=== PATIENT | female | born 1945 | race African-American/Black ===

== ENCOUNTER 2024-10-20 03:09 | Inpatient (IN) | payer BC, MEDICAID ==
[~2024-10-20] VITALS: Ht 157.5 cm; Wt 57.7 kg
[~2024-10-20 03:09] MED LIST: ALBU8HFA PO; AMI200T PO; APIX5TAB3 PO; ASPI-1475 PO; DOCU-392 PO; EMPA10TA PO; FURO20TA4 PO; METO50TA16 PO; OMEP20CA16 PO; ROSU40TA89 PO; SPIR25TA5 PO; TIOT4MIS2 INH; [UNRECOGNIZED DRUG - CODE] PO
[2024-10-20 03:54] LABS: BASOPHILS % (AUTO) 0.9 % (0-1); EOSINOPHILS % (AUTO) 0.8 % (0-6); HEMATOCRIT 30.4 % (35.0-45.0); HEMOGLOBIN 9.6 g/dl (12.0-16.0); LYMPHOCYTES # (AUTO) 1.2 X10'3 (1.1-4.8); LYMPHOCYTES % (AUTO) 27.2 % (21-51); MEAN CORPUSCULAR HEMOGLOBIN 27.4 PG (27.0-31.0); MEAN CORPUSCULAR HGB CONC 31.6 g/dL (33.0-36.5); MEAN CORPUSCULAR VOLUME 86.8 FL (78-98); MEAN PLATELET VOLUME 7.6 FL (7.4-10.4); MONOCYTES # (AUTO) 0.7 X10'3 (0-0.9); NEUTROPHILS # (AUTO) 2.3 X10'3 (1.8-7.7); NEUTROPHILS % (AUTO) 54.1 % (42-75); PLATELET COUNT 238 X10'3 (140-440); RED BLOOD COUNT 3.51 X10'6 (4.20-5.60); RED CELL DISTRIBUTION WIDTH 19.7 % (11.5-14.5); WHITE BLOOD COUNT 4.3 X10'3 (4.5-11.0)
[2024-10-20 04:10] LABS: ALANINE AMINOTRANSFERASE 91 U/L (12-78); ALBUMIN 2.3 G/DL (3.4-5.0); ALBUMIN/GLOBULIN RATIO 0.4 (1.1-1.5); ALKALINE PHOSPHATASE 269 IU/L (46-116); ANION GAP 8 (8-16); ASPARTATE AMINO TRANSFERASE 99 U/L (10-37); BILIRUBIN,TOTAL 0.6 MG/DL (0.1-1.0); BLOOD UREA NITROGEN 30 MG/DL (7-18); BUN/CREATININE RATIO 13.6 (10.0-20.0); CALCIUM 8.6 MG/DL (8.5-10.1); CHLORIDE 104 MMOL/L (99-107); GLUCOSE 110 MG/DL (70-104); LIPASE 39 U/L (16-77); POTASSIUM 5.5 MMOL/L (3.5-5.1); SODIUM 133 MMOL/L (135-145); TOTAL CARBON DIOXIDE 21.4 MMOL/L (24-32); TOTAL PROTEIN 8.7 G/DL (6.4-8.2); eGFR 22 ML/MIN
[2024-10-20 04:38] LABS: EOSINOPHILS % (MANUAL) 2 % (0-6); HYPOCHROMASIA 1+; LYMPHOCYTES % (MANUAL) 23 % (21-51); MICROCYTOSIS 1+; MONOCYTES % (MANUAL) 8 % (2-12); NEUTROPHILS % (MANUAL) 67 % (42-75); PLATELET ESTIMATE NORMAL; TOTAL CELLS COUNTED 100
[2024-10-20 04:39] LABS: TARGET CELLS 1+
[2024-10-20] MEDS: normal saline 1000ml 1,000 ML IV ONE (05:36)
[2024-10-20] MEDS: ondansetron/PF 4mg/2ml inj IV ONE ×2 (05:36→08:32)
[2024-10-20] MEDS: morphine 4 MG/ML inj SYRINge IV ONE ×2 (05:37→09:32)
[2024-10-20] MEDS: potassium Cl 20 mEq SR tablet PO STA (06:15)
[2024-10-20] MEDS ORDERED: magnesium sulf-water 2g/50mL 50 ML IV PRN (08:20)
[2024-10-20] MEDS ORDERED: morphine 2 MG/ML inj. syringe IV PRN ×2 (08:20)
[2024-10-20] MEDS ORDERED: mag hydrox/Alum hydrox/simeth 30ml oral suspension PO PRN (08:20)
[2024-10-20] MEDS ORDERED: HYDROcodone/acetaminophen 10/325mg tab PO PRN (08:20)
[2024-10-20] MEDS ORDERED: potassium Cl 40MEQ/1/2NS 520ml 520 ML IV PRN (08:20)
[2024-10-20] MEDS ORDERED: magnesium Cl slow-release 64mg tablet PO PRN (08:20)
[2024-10-20] MEDS ORDERED: acetaminophen 325mg tablet PO PRN (08:20)
[2024-10-20] MEDS ORDERED: bisacodyl 10mg suppository rectal RC PRN (08:20)
[2024-10-20] MEDS ORDERED: potassium Cl 20 mEq SR tablet PO PRN ×2 (08:20)
[2024-10-20] MEDS ORDERED: magnesium hydroxide 30ml (MOM) UD suspension PO PRN (08:20)
[2024-10-20 08:28] LABS: BILIRUBIN,URINE NEGATIVE (Neg); CLARITY,URINE CLOUDY (Clear); COLOR,URINE YELLOW (Yellow); GLUCOSE, URINE 500 mg/dl (Neg); KETONES,URINE NEGATIVE (Neg); LEUKOCYTE ESTERASE ,URINE NEGATIVE (Neg); NITRITES, URINE NEGATIVE (Neg); OCCULT BLOOD,URINE LARGE (Neg); PH,URINE 6.5 (4.8-8.0); PROTEIN,URINE 100 mg/dl (Neg)
[2024-10-20 08:29] LABS: UA COLLECTION TYPE FOLEY CATH
[2024-10-20 08:44] LABS: BACTERIA,URINE 1+ /HPF (Neg); RBC,URINE 20-50 /HPF (0-2); WBC,URINE 50-100 /HPF (0-4)
[2024-10-20 08:45] LABS: MUCUS STRANDS NONE SEEN /LPF (Neg); SQUAMOUS EPITHELIAL CELL,UR NONE SEEN /LPF (FEW); YEAST MANY /HPF (NEGATIVE)
[2024-10-20] MEDS: CefTRIAXone 2gm/D5W 50ml BAG 50 ML IV ONE (09:32)
[2024-10-20] MEDS: morphine 4 MG/ML inj SYRINge ONE (09:33)
[2024-10-20] MEDS: normal saline 1000ml 1,000 ML IV SCH (09:34)
[2024-10-20 09:46] LABS: URINE AMPHETAMINE SCREEN NEGATIVE (Neg); URINE BARBITUATE SCREEN NEGATIVE (Neg); URINE BENZODIAZEPINES SCREEN NEGATIVE (Neg); URINE CANNABINOID SCREEN NEGATIVE (Neg); URINE COCAINE SCREEN NEGATIVE (Neg); URINE METHADONE SCREEN NEGATIVE (Neg); URINE OPIATE SCREEN POSITIVE (Neg); URINE PHENCYCLIDINE SCREEN NEGATIVE (Neg)
[2024-10-20 09:52] LABS: APTT 37 SECONDS (22-32); INR 1.5 INR; PROTHROMBIN TIME 14.9 SECONDS (9.0-12.0)
[2024-10-20 10:52] LABS: MAGNESIUM 2.3 MG/DL (1.5-2.4); POTASSIUM 5.1 MMOL/L (3.5-5.1)
[2024-10-20] MEDS: docusate sod 100mg capsule PO SCH (20:00)
[2024-10-20] MEDS: ondansetron/PF 4mg/2ml inj IV PRN (20:06)
[2024-10-20] MEDS: CefTRIAXone/D5W-Rocephin 1gm 50 ML IV SCH (20:06)
[2024-10-20] MEDS: pantoprazole 40 MG vial IV SCH (21:03)
[2024-10-20] MEDS: heparin, porcine 5000 units/ml vial SQ SCH (21:15)
[2024-10-21] VITALS (8 sets, daily range): BP systolic 121–147; BP diastolic 70–98; PULSE 67–144; RESP 12–20; TEMP 96.9–98.2; O2SAT 90–100
[2024-10-21] MEDS ORDERED: ACET-1008 PO (01:14)
[2024-10-21] MEDS ORDERED: POTA-192 PO (01:38)
[2024-10-21] MEDS ORDERED: METO-411 PO (01:38)
[2024-10-21] MEDS ORDERED: UMEC62.5 INH (01:38)
[2024-10-21] MEDS ORDERED: ROSU40TA89 PO (01:38)
[2024-10-21] MEDS ORDERED: BISA-77 PO (01:38)
[2024-10-21] MEDS ORDERED: MAGN400O6 PO (01:38)
[2024-10-21] MEDS ORDERED: MULT-1085 PO (01:38)
[2024-10-21] MEDS ORDERED: CARB15DR RIGHTEYE (01:38)
[2024-10-21] MEDS ORDERED: AMI200T PO (01:38)
[2024-10-21] MEDS ORDERED: LIDO700A47 TOP (01:38)
[2024-10-21] MEDS ORDERED: ACET-1025 PO (01:38)
[2024-10-21] MEDS ORDERED: LORA-268 PO (01:38)
[2024-10-21] MEDS ORDERED: RIVA20TA PO (01:38)
[2024-10-21] MEDS ORDERED: CRAN450T9 PO (01:38)
[2024-10-21] MEDS ORDERED: BISA-155 PO (01:38)
[2024-10-21] MEDS ORDERED: TRAM50TA2 PO (01:38)
[2024-10-21] MEDS ORDERED: DIPH25CA83 PO (01:38)
[2024-10-21] MEDS ORDERED: CEFD300C3 PO (01:38)
[2024-10-21] MEDS ORDERED: CARB15DR LEFTEYE (01:38)
[2024-10-21] MEDS ORDERED: MELA10TA2 PO (01:38)
[2024-10-21] MEDS ORDERED: ONDA-243 PO (01:38)
[2024-10-21] MEDS ORDERED: DOCU100C40 PO (01:38)
[2024-10-21] MEDS: metoclopramide 5 mg/ml inj IV PRN (03:12)
[2024-10-21 03:30] LABS: BASOPHILS % (AUTO) 0.3 % (0-1); EOSINOPHILS % (AUTO) 0.3 % (0-6); LYMPHOCYTES # (AUTO) 0.9 X10'3 (1.1-4.8); LYMPHOCYTES % (AUTO) 17.2 % (21-51); MEAN PLATELET VOLUME 7.8 FL (7.4-10.4); MONOCYTES # (AUTO) 0.6 X10'3 (0-0.9); MONOCYTES % (AUTO) 11.6 % (2-12); NEUTROPHILS # (AUTO) 3.7 X10'3 (1.8-7.7); NEUTROPHILS % (AUTO) 70.6 % (42-75); PLATELET COUNT 211 X10'3 (140-440); WHITE BLOOD COUNT 5.3 X10'3 (4.5-11.0)
[2024-10-21 03:51] LABS: ALANINE AMINOTRANSFERASE 86 U/L (12-78); ALBUMIN 2.2 G/DL (3.4-5.0); ALBUMIN/GLOBULIN RATIO 0.3 (1.1-1.5); ALKALINE PHOSPHATASE 226 IU/L (46-116); ANION GAP 10 (8-16); ASPARTATE AMINO TRANSFERASE 86 U/L (10-37); BILIRUBIN,TOTAL 0.5 MG/DL (0.1-1.0); BLOOD UREA NITROGEN 27 MG/DL (7-18); BUN/CREATININE RATIO 13.8 (10.0-20.0); CALCIUM 8.7 MG/DL (8.5-10.1); CHLORIDE 108 MMOL/L (99-107); CREATININE 1.96 MG/DL (0.40-0.90); GLUCOSE 86 MG/DL (70-104); POTASSIUM 5.1 MMOL/L (3.5-5.1); SODIUM 138 MMOL/L (135-145); TOTAL CARBON DIOXIDE 20.4 MMOL/L (24-32); TOTAL PROTEIN 8.6 G/DL (6.4-8.2); eCRCL 19 ML/MIN; eGFR 30 ML/MIN
[2024-10-21 03:54] LABS: HEMATOCRIT 32.7 % (35.0-45.0); HEMOGLOBIN 10.8 g/dl (12.0-16.0); MEAN CORPUSCULAR HEMOGLOBIN 28.2 PG (27.0-31.0); MEAN CORPUSCULAR VOLUME 85.6 FL (78-98); RED BLOOD COUNT 3.83 X10'6 (4.20-5.60); RED CELL DISTRIBUTION WIDTH 18.7 % (11.5-14.5)
[2024-10-21] MEDS: HYDROcodone/acetaminophen 5mg/325mg tablet PO PRN (06:12)
[2024-10-21] MEDS: HYDROmorphone inj. 0.5 MG/0.5 ML DISP.SYRIN IV PRN (07:50)
[2024-10-21] MEDS: sodium bicarbonate 1meq/ml inj 150 ML in dextrose 5%-water 1,000 ML IV ONE (16:44)
[2024-10-22] VITALS (8 sets, daily range): BP systolic 118–149; BP diastolic 60–89; PULSE 70–153; RESP 13–23; TEMP 96.5–97.9; O2SAT 89–96
[2024-10-22] MEDS: amiodarone 200mg tablet PO ONE (01:11)
[2024-10-22 01:48] LABS: TOTAL PROTEIN,URINE RANDOM 169.4 MG/DL
[2024-10-22] MEDS: metoprolol tartrate 1mg/ml inj IV ONE ×2 (04:03→06:34)
[2024-10-22] MEDS: diltiazem CD 180mg cap (once-daily) PO SCH (06:35)
[2024-10-22] MEDS: amiodarone 200mg tablet PO SCH (08:39)
[2024-10-22 09:23] LABS: BASOPHILS % (AUTO) 0.9 % (0-1); EOSINOPHILS % (AUTO) 0.1 % (0-6); LYMPHOCYTES # (AUTO) 0.9 X10'3 (1.1-4.8); LYMPHOCYTES % (AUTO) 18.9 % (21-51); MEAN PLATELET VOLUME 8.1 FL (7.4-10.4); MONOCYTES % (AUTO) 20.7 % (2-12); NEUTROPHILS # (AUTO) 2.8 X10'3 (1.8-7.7); NEUTROPHILS % (AUTO) 59.4 % (42-75); PLATELET COUNT 198 X10'3 (140-440); WHITE BLOOD COUNT 4.7 X10'3 (4.5-11.0)
[2024-10-22] MEDS: diltiazem 5mg/ml 5ml inj. IV ONE (09:37)
[2024-10-22 09:41] LABS: HEMATOCRIT 30.5 % (35.0-45.0); MEAN CORPUSCULAR HEMOGLOBIN 27.9 PG (27.0-31.0); MEAN CORPUSCULAR HGB CONC 32.9 g/dL (33.0-36.5); MEAN CORPUSCULAR VOLUME 84.7 FL (78-98); RED CELL DISTRIBUTION WIDTH 18.7 % (11.5-14.5)
[2024-10-22 09:57] LABS: ANISOCYTOSIS 2+; NUCLEATED RED BLOOD CELLS 1 /100WBC (0-0); PLATELET ESTIMATE NORMAL; POLYCHROMASIA FEW; TARGET CELLS FEW; TEAR DROP CELLS FEW; TOTAL CELLS COUNTED 100
[2024-10-22 09:58] LABS: ELLIPTOCYTES FEW
[2024-10-22 10:40] LABS: ALANINE AMINOTRANSFERASE 95 U/L (12-78); ALBUMIN 2.2 G/DL (3.4-5.0); ALBUMIN/GLOBULIN RATIO 0.3 (1.1-1.5); ALKALINE PHOSPHATASE 214 IU/L (46-116); ANION GAP 12 (8-16); ASPARTATE AMINO TRANSFERASE 98 U/L (10-37); BILIRUBIN,TOTAL 0.6 MG/DL (0.1-1.0); BLOOD UREA NITROGEN 26 MG/DL (7-18); BUN/CREATININE RATIO 12.8 (10.0-20.0); CALCIUM 8.9 MG/DL (8.5-10.1); CHLORIDE 107 MMOL/L (99-107); CREATININE 2.03 MG/DL (0.40-0.90); GLUCOSE 97 MG/DL (70-104); POTASSIUM 4.9 MMOL/L (3.5-5.1); PRO BRAIN NATRIURETIC PEPTIDE 16998 PG/ML (0-450); SODIUM 140 MMOL/L (135-145); TOTAL CARBON DIOXIDE 20.9 MMOL/L (24-32); TOTAL PROTEIN 8.5 G/DL (6.4-8.2); eCRCL 18 ML/MIN; eGFR 29 ML/MIN
[2024-10-22] MEDS: lactose-reduced food (Ensure Enlive) - 237ml bottle PO SCH (13:09)
[2024-10-22] MEDS: ondansetron 4mg rapidly disintigrating tab PO PRN (19:34)
[2024-10-22] MEDS: metoprolol succinate 25mg (24-HOUR) SR. Tablet PO SCH (19:36)
[2024-10-22] MEDS: rivaroxaban 20mg tablet PO SCH (19:37)
[2024-10-22] MEDS: atorvastatin 20mg tablet PO SCH (19:37)
[2024-10-22] MEDS: furosemide 20 MG/2 ML vial IV SCH (23:58)
[2024-10-23 02:00] VITALS: BP 117/68; PULSE 111; RESP 14; TEMP 97.6; O2SAT 95
[2024-10-23 06:00] VITALS: BP 120/70; PULSE 71; RESP 12; TEMP 97.1; O2SAT 92
[2024-10-23 08:00] VITALS: BP_SYST 117; BP_SYST 135; BP_DIAS 68; BP_DIAS 70; PULSE 118; PULSE 71; RESP 18; O2SAT 94
[2024-10-23] MEDS: pantoprazole 40mg Tablet.DR PO SCH (08:31)
[2024-10-23] MEDS: EMPAGLIFLOZIN 10 MG TABLET PO SCH (08:31)
[2024-10-23 11:00] VITALS: BP 120/69; PULSE 130; RESP 18; TEMP 97.5; O2SAT 92
[2024-10-23 15:00] VITALS: BP 125/71; PULSE 60; RESP 15; TEMP 97.6; O2SAT 92
[2024-10-23] MEDS ORDERED: FURO-150 PO (20:16)
== END 2024-10-23 16:26 | DRG 682 ==
LOC: ER 03:09 → ED HOLD 09:10 → PCU 3S 10-21 08:17
PROVIDERS: ADMIT Internal Medicine; ATTEND Internal Medicine
DX: N17.0 Acute kidney failure with tubular necrosis (principal); G93.41 Metabolic encephalopathy; I50.22 Chronic systolic (congestive) heart failure; C90.00 Multiple myeloma not having achieved remission; E87.29 Other acidosis; E86.0 Dehydration; N13.6 Pyonephrosis; I48.91 Unspecified atrial fibrillation; K76.1 Chronic passive congestion of liver; R74.01 Elevation of levels of liver transaminase levels; E87.8 Other disorders of electrolyte and fluid balance, not elsewhere classified; I27.20 Pulmonary hypertension, unspecified; Z88.5 Allergy status to narcotic agent; Z88.8 Allergy status to other drugs, medicaments and biological substances; Z95.0 Presence of cardiac pacemaker
CPT/HCPCS: 36415; 70450; 71045; 74176; 80053; 80305; 81001; 82140; 82570; 82948; 83605; 83690; 83735; 83880; 84132; 84133; 84156; 84300; 84443; 84540; 85007; 85025; 85610; 85651; 85730; 87040; 87077; 87081; 87088; 93005; 93306; 96374; 96375; 97161; 97530; 99285; C1758; G0378; J0696; J1171; J1644; J1940; J2270; J2405; J2470; J2765; J3490; J7030; J7070